=== PATIENT | female | born 1975 | race Caucasian/White ===

== ENCOUNTER 2018-07-04 20:48 | Inpatient (IN) | payer OTHER ==
[2018-07-04] MEDS ORDERED: SODIUM CHLORIDE 0.9% 1,000 ML IV STA ×2 (21:00)
[2018-07-04] MEDS ORDERED: ONDANSETRON 4 MG/2 ML VIAL IVP STA (21:00)
[2018-07-04] MEDS ORDERED: PANTOPRAZOLE 40 MG/10 ML VIAL IVP STA (21:00)
[2018-07-04] MEDS ORDERED: OCTREOTIDE 100 MCG/ML INJ IVP STA (21:01)
--- NOTE | 2018-07-04 21:04 | ED ---
GI Bleed HPI - General Chief complaint: GI Bleed Stated complaint: GI BLEED Time Seen by Provider: 07/04/18 21:00 Source: patient, RN notes reviewed, old records reviewed Mode of arrival: EMS Limitations: no limitations - History of Present Illness Initial comments: This is a 43-year-old female to the ER for evaluation today. States she is coming for evaluation regards to nausea and vomiting, vomiting of blood. Patient has remote history of alcoholism he states he [id number] 5 years ago. Nausea vomiting is continued currently. She denies any pain no abdominal pain just feel lightheaded dizzy and weak. Denies any prior history of GI bleed. Patient is on no blood thinners MD complaint: blood streaked emesis, gross hematemesis -: hour(s) Radiation: none (No pain) Severity scale (1-10): 7 Quality: painless Consistency: constant, now resolved Improves with: none Worsens with: vomiting Context: alcohol abuse (5 years ago) Associated Symptoms: nausea, vomiting Treatments Prior to Arrival: none - Related Data Home Medications Medication Instructions Recorded Confirmed Ergocalciferol [Vitamin D2] 50,000 unit PO Q7D 07/04/18 07/04/18 Ferrous Gluconate 324 mg PO HS 07/04/18 07/04/18 Ibuprofen [Motrin] 800 mg PO AC-TID PRN 07/04/18 07/04/18 Levothyroxine Sodium [Synthroid] 100 mcg PO HS 07/04/18 07/04/18 Loratadine [Claritin] 10 mg PO HS 07/04/18 07/04/18 Thyroid, Pork [[place] Thyroid] 30 mg PO HS 07/04/18 07/04/18 Allergies Allergy/AdvReac Type Severity Reaction Status Date / Time No Known Allergies Allergy Verified 07/04/18 20:58 Review of Systems ROS Statement: Those systems with pertinent positive or pertinent negative responses have been documented in the HPI. ROS Other: All systems not noted in ROS Statement are negative. Past Medical History Past Medical History: Thyroid Disorder History of Any Multi-Drug Resistant Organisms: None Reported Past Surgical History: No Surgical Hx Reported Past Psychological History: No Psychological Hx Reported Smoking Status: Never smoker Past Alcohol Use History: None Reported Past Drug Use History: None Reported General Exam - General Exam Comments Initial Comments: pallor Limitations: no limitations General appearance: alert, in no apparent distress Head exam: Present: atraumatic, normocephalic, normal inspection Eye exam: Present: normal appearance, PERRL, EOMI. Absent: scleral icterus, conjunctival injection, periorbital swelling ENT exam: Present: normal exam, mucous membranes moist Neck exam: Present: normal inspection. Absent: tenderness, meningismus, lymphadenopathy Respiratory exam: Present: normal lung sounds bilaterally. Absent: respiratory distress, wheezes, rales, rhonchi, stridor Cardiovascular Exam: Present: normal rhythm, tachycardia, normal heart sounds. Absent: systolic murmur, diastolic murmur, rubs, gallop, clicks GI/Abdominal exam: Present: soft, normal bowel sounds. Absent: distended, tenderness, guarding, rebound, rigid Extremities exam: Present: normal inspection, full ROM, normal capillary refill. Absent: tenderness, pedal edema, joint swelling, calf tenderness Back exam: Present: normal inspection Neurological exam: Present: alert, oriented X3, CN II-XII intact Psychiatric exam: Present: normal affect, normal mood Skin exam: Present: warm, dry, intact, normal color. Absent: rash Course Vital Signs 07/04/18 07/04/18 20:51 20:56 Temperature 98.4 F Pulse Rate 117 H Respiratory 24 Rate Blood Pressure 109/95 O2 Sat by Pulse 100 Oximetry - Reevaluation(s) Reevaluation #1: 07/04/18 22:18 Medical record is reviewed noncontributory Reevaluation #2: 07/04/18 22:19 Patient's nausea vomiting, vomiting of blood and stopped here in the emergency room Reevaluation #3: 07/04/18 22:19 Patient will be transfused secondary to hemoglobin less than 10 with active GI bleed, Medical Decision Making - Medical Decision Making 43 female the ER with active upper GI bleed, remote history of alcoholism, patient will be admitted to ICU for hemodynamic care transfusion. - Lab Data Result diagrams: 07/04/18 20:52 07/04/18 20:52 Lab Results 07/04/18 07/04/18 07/04/18 Range/Units 20:52 20:52 20:52 WBC 18.0 H (3.8-10.6) k/uL RBC 3.41 L (3.80-5.40) m/uL Hgb 9.8 L (11.4-16.0) gm/dL Hct 29.8 L (34.0-46.0) % MCV 87.4 (80.0-100.0) fL MCH 28.6 (25.0-35.0) pg MCHC 32.7 (31.0-37.0) g/dL RDW 13.1 (11.5-15.5) % Plt Count 395 (150-450) k/uL Neutrophils % 77 % Lymphocytes % 17 % Monocytes % 4 % Eosinophils % 0 % Basophils % 0 % Neutrophils # 14.0 H (1.3-7.7) k/uL Lymphocytes # 3.0 (1.0-4.8) k/uL Monocytes # 0.8 (0-1.0) k/uL Eosinophils # 0.0 (0-0.7) k/uL Basophils # 0.0 (0-0.2) k/uL PT (9.0-12.0) sec INR (<1.2) APTT (22.0-30.0) sec Sodium 136 L (137-145) mmol/L Potassium 4.7 (3.5-5.1) mmol/L Chloride 104 (98-107) mmol/L Carbon Dioxide 22 (22-30) mmol/L Anion Gap 10 mmol/L BUN 48 H (7-17) mg/dL Creatinine 0.68 (0.52-1.04) mg/dL Est GFR (CKD-EPI)AfAm >90 (>60 ml/min/1.73 sqM) Est GFR (CKD-EPI)NonAf >90 (>60 ml/min/1.73 sqM) Glucose 170 H (74-99) mg/dL Plasma Lactic Acid Carl (0.7-2.0) mmol/L Calcium 9.2 (8.4-10.2) mg/dL Magnesium 1.7 (1.6-2.3) mg/dL Total Bilirubin 0.3 (0.2-1.3) mg/dL AST 24 (14-36) U/L ALT 28 (9-52) U/L Alkaline Phosphatase 50 (38-126) U/L Total Creatine Kinase 42 (30-135) U/L CK-MB (CK-2) 1.0 (0.0-2.4) ng/mL CK-MB (CK-2) Rel Index 2.4 Troponin I 0.044 H* (0.000-0.034) ng/mL Total Protein 6.1 L (6.3-8.2) g/dL Albumin 3.6 (3.5-5.0) g/dL Lipase 64 (23-300) U/L Blood Type Blood Type Recheck Antibody Screen Spec Expiration Date 07/04/18 07/04/18 07/04/18 Range/Units 20:52 20:52 20:52 WBC (3.8-10.6) k/uL RBC (3.80-5.40) m/uL Hgb (11.4-16.0) gm/dL Hct (34.0-46.0) % MCV (80.0-100.0) fL MCH (25.0-35.0) pg MCHC (31.0-37.0) g/dL RDW (11.5-15.5) % Plt Count (150-450) k/uL Neutrophils % % Lymphocytes % % Monocytes % % Eosinophils % % Basophils % % Neutrophils # (1.3-7.7) k/uL Lymphocytes # (1.0-4.8) k/uL Monocytes # (0-1.0) k/uL Eosinophils # (0-0.7) k/uL Basophils # (0-0.2) k/uL PT 10.4 (9.0-12.0) sec INR 1.0 (<1.2) APTT 18.8 L (22.0-30.0) sec Sodium (137-145) mmol/L Potassium (3.5-5.1) mmol/L Chloride (98-107) mmol/L Carbon Dioxide (22-30) mmol/L Anion Gap mmol/L BUN (7-17) mg/dL Creatinine (0.52-1.04) mg/dL Est GFR (CKD-EPI)AfAm (>60 ml/min/1.73 sqM) Est GFR (CKD-EPI)NonAf (>60 ml/min/1.73 sqM) Glucose (74-99) mg/dL Plasma Lactic Acid Carl 4.3 H* (0.7-2.0) mmol/L Calcium (8.4-10.2) mg/dL Magnesium (1.6-2.3) mg/dL Total Bilirubin (0.2-1.3) mg/dL AST (14-36) U/L ALT (9-52) U/L Alkaline Phosphatase (38-126) U/L Total Creatine Kinase (30-135) U/L CK-MB (CK-2) (0.0-2.4) ng/mL CK-MB (CK-2) Rel Index Troponin I (0.000-0.034) ng/mL Total Protein (6.3-8.2) g/dL Albumin (3.5-5.0) g/dL Lipase (23-300) U/L Blood Type A Positive Blood Type Recheck No Antibody Screen NEGATIVE Spec Expiration Date 07/07/2018 - 0647 - EKG Data -: EKG Interpreted by Me (EKG shows sinus tachycardia rate of 105, NH 126, QRS 96, QTc 444) Critical Care Time Critical Care Time: Yes Total Critical Care Time: 31 Disposition Clinical Impression: Gastrointestinal hemorrhage, Upper gastrointestinal hemorrhage Disposition: ADMITTED IP TO THIS [facility] Condition: Serious Is patient prescribed a controlled substance at d/c from ED?: No Referrals: Prabha William DO [Primary Care Provider] - 1-2 days
[2018-07-04 21:20] LABS: Basophils % (A) 0 %; Eosinophils % (A) 0 %; HCT 29.8 % (34.0-46.0); HGB 9.8 gm/dL (11.4-16.0); Lymphocytes % (A) 17 %; MCH 28.6 pg (25.0-35.0); MCHC 32.7 g/dL (31.0-37.0); MCV 87.4 fL (80.0-100.0); Monocytes # (A) 0.8 k/uL (0-1.0); Monocytes % (A) 4 %; Neutrophils % (A) 77 %; Platelet Count 395 k/uL (150-450); RBC 3.41 m/uL (3.80-5.40); RDW 13.1 % (11.5-15.5)
[2018-07-04 21:37] LABS: ALT 28 U/L (9-52); AST 24 U/L (14-36); Albumin 3.6 g/dL (3.5-5.0); Alkaline Phosphatase 50 U/L (38-126); Anion Gap 10 mmol/L; Blood Urea Nitrogen 48 mg/dL (7-17); Calcium 9.2 mg/dL (8.4-10.2); Carbon Dioxide 22 mmol/L (22-30); Chloride 104 mmol/L (98-107); Glucose 170 mg/dL (74-99); Lipase 64 U/L (23-300); Magnesium 1.7 mg/dL (1.6-2.3); Potassium 4.7 mmol/L (3.5-5.1); Sodium 136 mmol/L (137-145); Total Bilirubin 0.3 mg/dL (0.2-1.3); Total Protein 6.1 g/dL (6.3-8.2)
[2018-07-04 21:45] LABS: Prothrombin Time 10.4 sec (9.0-12.0)
[2018-07-04 21:48] LABS: Partial Thromboplastin Time 18.8 sec (22.0-30.0)
[2018-07-04 22:04] LABS: Troponin I 0.044 ng/mL (0.000-0.034)
[2018-07-04] MEDS ORDERED: NALOXONE 0.4 MG/ML 1 ML VIAL IV PRN (22:13)
[2018-07-04 23:37] LABS: Glucose,Whole Blood 108 mg/dL (75-99)
[2018-07-04 23:44] VITALS: BMI 27.8
[2018-07-05 03:02] LABS: Basophils # (A) 0.1 k/uL (0-0.2); Basophils % (A) 0 %; Eosinophils # (A) 0.1 k/uL (0-0.7); Eosinophils % (A) 1 %; HCT 29.6 % (34.0-46.0); HGB 9.9 gm/dL (11.4-16.0); Lymphocytes # (A) 4.1 k/uL (1.0-4.8); Lymphocytes % (A) 24 %; MCH 28.8 pg (25.0-35.0); MCHC 33.4 g/dL (31.0-37.0); MCV 86.2 fL (80.0-100.0); Mean Platelet Volume 7.4; Monocytes # (A) 0.9 k/uL (0-1.0); Monocytes % (A) 5 %; Neutrophils # (A) 11.9 k/uL (1.3-7.7); Neutrophils % (A) 69 %; Platelet Count 305 k/uL (150-450); RBC 3.43 m/uL (3.80-5.40); RDW 13.2 % (11.5-15.5); WBC 17.3 k/uL (3.8-10.6)
[2018-07-05 03:12] LABS: ALT 32 U/L (9-52); AST 21 U/L (14-36); Albumin 3.3 g/dL (3.5-5.0); Alkaline Phosphatase 48 U/L (38-126); Anion Gap 5 mmol/L; Blood Urea Nitrogen 36 mg/dL (7-17); Calcium 8.4 mg/dL (8.4-10.2); Carbon Dioxide 24 mmol/L (22-30); Chloride 107 mmol/L (98-107); Glucose 100 mg/dL (74-99); Lipase 35 U/L (23-300); Magnesium 1.7 mg/dL (1.6-2.3); Phosphorus 3.5 mg/dL (2.5-4.5); Potassium 4.3 mmol/L (3.5-5.1); Sodium 136 mmol/L (137-145); Total Bilirubin 0.5 mg/dL (0.2-1.3); Total Protein 5.6 g/dL (6.3-8.2)
[2018-07-05] MEDS ORDERED: Magnesium Replacement Protocol 1 EACH MISC MISCELLANE PRN (03:17)
[2018-07-05] MEDS: MAGNESIUM SULFATE-D5W PMX 1 GM in DEXTROSE/WATER 1 100ML.BAG IVPB SCH ×2 (04:50→06:02)
[2018-07-05 06:37] LABS: HCT 30.4 % (34.0-46.0); HGB 10.5 gm/dL (11.4-16.0); MCH 30.4 pg (25.0-35.0); MCHC 34.4 g/dL (31.0-37.0); MCV 88.2 fL (80.0-100.0); Mean Platelet Volume 7.7; Platelet Count 249 k/uL (150-450); RBC 3.44 m/uL (3.80-5.40); RDW 14.1 % (11.5-15.5); WBC 14.9 k/uL (3.8-10.6)
[2018-07-05] MEDS: PANTOPRAZOLE 40 MG/10 ML VIAL IV SCH ×2 (08:47→21:41)
[2018-07-05 09:34] LABS: Appearance,Urine Clear (Clear); Bilirubin,Urine Negative (Negative); Blood,Urine Negative (Negative); Color,Urine Yellow; Glucose,Urine (UA) Negative (Negative); Ketones,Urine Negative (Negative); Leukocyte Esterase,Urine Negative (Negative); Nitrite,Urine Negative (Negative); Protein,Urine Negative (Negative); Specific Gravity,Urine 1.022 (1.001-1.035); Urobilinogen,Urine <2.0 mg/dL (<2.0)
--- NOTE | 2018-07-05 09:51 | P.CONS ---
History of Present Illness - Reason for Consult Consult date: 07/05/18 GI Bleed Requesting physician: Rc Velez - Chief Complaint Bloody vomit - History of Present Illness The patient is a 43-year-old female with medical history significant for hypothyroidism who presents to the hospital with complaints of hematemesis. The patient reports multiple episodes of hematemesis which started yesterday. She reports waking up in the morning and feeling nauseated and subsequently vomiting more times than she could count which was productive of bright red blood and clots. The patient denies any prior history of upper GI bleeds or varices. No history of peptic ulcer disease. The patient has had endoscopic evaluation with both EGD and colonoscopy approximately 30 years ago in evaluation of stomach pain which she reports was normal, no further endoscopic evaluation. The patient reports that the vomiting occurred more times than she could count and after improving was triggered a second and third time when she tried to drink water. She denies any abdominal pain in association with the vomiting. She denies any fevers, chills, but does report shortness of breath with ambulation in association with the vomiting. No bowel movements yesterday or today. Her last bowel movement 2 days ago was normal in color and consistency. The patient does report frequent upset stomach which she associates with the use of energy drinks describes as a burning in the epigastric region of her abdomen. She treats her abdominal discomfort with Rolaids which she takes approximately 2 times per day. She also uses Motrin 800 mg 1-2 times a day and says that she has been doing this for years. She has a remote history of alcohol use between the ages of 17 and 29/retraction approximate 2 times per week. However the patient reports she is not drinking any alcohol in the past 10 years. She does not use any PPIs or H2 blockers at home. The patient is on iron supplementation at home and believes that reason she is taking iron is because of low levels on blood work in the past. The patient's hemoglobin was 9.8 on presentation and she was subsequently transfused 2 units of packed red blood cells with her hemoglobin found to be 10.5 this morning. Review of Systems REVIEW OF SYSTEMS: CONSTITUTIONAL: Denies any fevers, chills, weight change or fatigue. CARDIOVASCULAR: Denies any chest pain, palpitations high or low blood pressures RESPIRATORY: Denies any hemoptysis or cough but does report shortness of breath with exertion. GENITOURINARY: No dysuria or hematuria. MUSCULOSKELETAL: No weakness reported. SKIN: Denies any new rashes or lesions, jaundice or pallor. PSYCHIATRIC: Denies any depression or anxiety. NEUROLOGY: Denies headache, denies any new focal deficits. EARS/NOSE/THROAT: No recent hearing change, congestion, nasal discharge or sore throat. EYES: No pain in eyes, discharge or change in vision. GASTROINTESTINAL: As per HPI. Past Medical History Past Medical History: Thyroid Disorder History of Any Multi-Drug Resistant Organisms: None Reported Past Surgical History: Ablation Additional Past Surgical History / Comment(s): Uterus ablation Past Psychological History: No Psychological Hx Reported Smoking Status: Current every day smoker Past Alcohol Use History: None Reported Additional Past Alcohol Use History / Comment(s): History of alcohol abuse. Quit 5 years ago Past Drug Use History: None Reported Additional Drug Use History / Comment(s): Smokes about 1/2 a pack per day - Past Family History Father History Unknown: Yes Family Medical History: Hypertension Mother Family Medical History: Hypertension Medications and Allergies Home Medications Medication Instructions Recorded Confirmed Type Ergocalciferol [Vitamin D2] 50,000 unit PO Q7D 07/04/18 07/04/18 History Ferrous Gluconate 324 mg PO HS 07/04/18 07/04/18 History Ibuprofen [Motrin] 800 mg PO AC-TID PRN 07/04/18 07/04/18 History Levothyroxine Sodium [Synthroid] 100 mcg PO HS 07/04/18 07/04/18 History Loratadine [Claritin] 10 mg PO HS 07/04/18 07/04/18 History Thyroid, Pork [[place] Thyroid] 30 mg PO HS 07/04/18 07/04/18 History Allergies Allergy/AdvReac Type Severity Reaction Status Date / Time No Known Allergies Allergy Verified 07/04/18 20:58 Physical Exam Vitals: Vital Signs Temp Pulse Resp BP Pulse Ox 07/05/18 08:00 98.1 F 68 13 102/70 99 07/05/18 07:53 99 07/05/18 07:00 71 13 114/81 99 07/05/18 06:00 75 14 120/83 99 07/05/18 05:00 71 12 126/94 100 07/05/18 04:48 98.3 F 72 15 126/94 07/05/18 04:00 85 18 117/92 99 07/05/18 03:48 98.2 F 89 16 117/92 07/05/18 03:18 98.0 F 84 15 124/97 07/05/18 03:08 98.4 F 80 14 117/84 07/05/18 03:00 84 16 120/83 99 07/05/18 02:12 98.5 F 89 15 126/74 07/05/18 02:00 86 13 132/87 99 07/05/18 01:08 98.7 F 85 15 119/78 07/05/18 01:00 88 15 118/88 99 07/05/18 00:38 99.4 F 96 12 118/88 07/05/18 00:28 99.0 F 101 H 11 L 125/87 07/05/18 00:00 102 H 12 123/99 98 07/04/18 23:32 98.0 F 102 H 17 123/99 100 07/04/18 20:56 98.4 F 07/04/18 20:51 117 H 24 109/95 100 Intake and Output 07/04/18 07/05/18 07/05/18 22:59 06:59 14:59 Intake Total 1940 100 Output Total 0 0 Balance 1940 100 Intake: IV 700 100 Magnesium Sulfate-D5w Pmx 200 1 gm In Dextrose/Water 1 100ml.bag @ 100 mls/hr IVPB Q1H [facility]IOR Rx#: [id number] Sodium Chloride 0.9% 1, 500 100 000 ml @ 100 mls/hr IV . Q10H STA Rx#:[id number] Blood Product 1240 Rc As-1 Unit 310 [id number] Rc Pheresis 2 As3 Unit 310 [id number] Output: Urine 0 0 Other: Voiding Method Toilet # Voids 1 Weight 73.4 kg 74 kg On physical examination, patient appears comfortable in no apparent distress. HEAD: Normocephalic, atraumatic. EYES: No scleral icterus. No conjunctival injection. MOUTH: No lesions, tongue midline. NECK: Trachea midline, no gross abnormalities. CHEST: Clear to auscultation with no wheezing or rhonchi appreciated. HEART: Regular rate and rhythm. ABDOMEN: Soft, obese. Bowel sounds are positive. No organomegaly. No guarding or rigidity. EXTREMITIES: No pedal edema. SKIN: No rashes, no jaundice. NEUROLOGIC: Alert and oriented x3. No focal deficits. Results CBC & Chem 7: 07/05/18 06:12 07/05/18 02:48 Labs: Abnormal Lab Results - Last 24 Hours (Table) 07/04/18 07/04/18 07/04/18 Range/Units 20:52 20:52 20:52 WBC 18.0 H (3.8-10.6) k/uL RBC 3.41 L (3.80-5.40) m/uL Hgb 9.8 L (11.4-16.0) gm/dL Hct 29.8 L (34.0-46.0) % Neutrophils # 14.0 H (1.3-7.7) k/uL APTT (22.0-30.0) sec Sodium 136 L (137-145) mmol/L BUN 48 H (7-17) mg/dL Glucose 170 H (74-99) mg/dL POC Glucose (mg/dL) (75-99) mg/dL Plasma Lactic Acid Carl (0.7-2.0) mmol/L Troponin I 0.044 H* (0.000-0.034) ng/mL Total Protein 6.1 L (6.3-8.2) g/dL Albumin (3.5-5.0) g/dL Crossmatch 07/04/18 07/04/18 07/04/18 Range/Units 20:52 20:52 20:52 WBC (3.8-10.6) k/uL RBC (3.80-5.40) m/uL Hgb (11.4-16.0) gm/dL Hct (34.0-46.0) % Neutrophils # (1.3-7.7) k/uL APTT 18.8 L (22.0-30.0) sec Sodium (137-145) mmol/L BUN (7-17) mg/dL Glucose (74-99) mg/dL POC Glucose (mg/dL) (75-99) mg/dL Plasma Lactic Acid Carl 4.3 H* (0.7-2.0) mmol/L Troponin I (0.000-0.034) ng/mL Total Protein (6.3-8.2) g/dL Albumin (3.5-5.0) g/dL Crossmatch See Detail 07/04/18 07/05/18 07/05/18 Range/Units 23:25 02:48 02:48 WBC 17.3 H (3.8-10.6) k/uL RBC 3.43 L (3.80-5.40) m/uL Hgb 9.9 L (11.4-16.0) gm/dL Hct 29.6 L (34.0-46.0) % Neutrophils # 11.9 H (1.3-7.7) k/uL APTT (22.0-30.0) sec Sodium 136 L (137-145) mmol/L BUN 36 H (7-17) mg/dL Glucose 100 H (74-99) mg/dL POC Glucose (mg/dL) 108 H (75-99) mg/dL Plasma Lactic Acid Carl (0.7-2.0) mmol/L Troponin I (0.000-0.034) ng/mL Total Protein 5.6 L (6.3-8.2) g/dL Albumin 3.3 L (3.5-5.0) g/dL Crossmatch 07/05/18 Range/Units 06:12 WBC 14.9 H (3.8-10.6) k/uL RBC 3.44 L (3.80-5.40) m/uL Hgb 10.5 L (11.4-16.0) gm/dL Hct 30.4 L (34.0-46.0) % Neutrophils # (1.3-7.7) k/uL APTT (22.0-30.0) sec Sodium (137-145) mmol/L BUN (7-17) mg/dL Glucose (74-99) mg/dL POC Glucose (mg/dL) (75-99) mg/dL Plasma Lactic Acid Carl (0.7-2.0) mmol/L Troponin I (0.000-0.034) ng/mL Total Protein (6.3-8.2) g/dL Albumin (3.5-5.0) g/dL Crossmatch Assessment and Plan (1) Upper gastrointestinal hemorrhage Narrative/Plan: Patient presenting with complaints of multiple episodes of hematemesis of unknown etiology, may represent peptic ulcer disease in the setting of Motrin use with differential also including [place] lesion, AVM, erosive esophagitis or gastritis or other etiology. Current Visit: Yes Status: Acute Code(s): K92.2 - GASTROINTESTINAL HEMORRHAGE, UNSPECIFIED SNOMED Code(s): 49163629 (2) Anemia due to blood loss Narrative/Plan: Patient presenting to the hospital with hemoglobin found to be 9.8 after multiple episodes of hematemesis. The patient also reported shortness of breath on exertion on presentation likely representing symptomatic anemia. Current Visit: Yes Status: Acute Code(s): D50.0 - IRON DEFICIENCY ANEMIA SECONDARY TO BLOOD LOSS (CHRONIC) SNOMED Code(s): 348035164 Plan: Supportive care Nothing by mouth Monitor hemoglobin and transfuse as needed Continue Protonix therapy Avoid NSAID use Plan for EGD today Further recommendations pending findings of endoscopy Thank you for allowing us to participate in the care of this patient we will continue to follow
--- NOTE | 2018-07-05 10:33 | P.HPIM ---
History of Present Illness H&P Date: 07/05/18 Chief Complaint: GI bleed This is a 43-year-old female patient of Dr. William. Patient presented with complaints of bloody emesis. She states she will up in the morning and started having emesis that she did not notice red with blood. Throughout the day patient to need to have dark red emesis patient was recommended from coworker to report to ER for further evaluation. Patient does report that she was a heavy drinker but stopped approximately 10 years prior. Patient denies any blood thinners at this time. Patient denies any previous episodes of GI bleed. Patient denies any light stool. Patient denies any abdominal pain with emesis occurrence. Patient does have a medical history of thyroid disorder patient does report that she takes Synthroid along with thyroid Pork. GI services have been consulted. Patient received 2 units of PRBCs in emergency room. Hemoglobin currently stable at 10.5. Per GI services planning EGD. White count also mildly 14.9. Patient denies cough. Patient denies any upper respiratory symptoms. UA negative. Patient denies any significant abdominal pain. Review of Systems Please refer to HPI otherwise unremarkable Past Medical History Past Medical History: Thyroid Disorder History of Any Multi-Drug Resistant Organisms: None Reported Past Surgical History: Ablation Additional Past Surgical History / Comment(s): Uterus ablation Past Psychological History: No Psychological Hx Reported Smoking Status: Current every day smoker Past Alcohol Use History: None Reported Additional Past Alcohol Use History / Comment(s): History of alcohol abuse. Quit 5 years ago Past Drug Use History: None Reported Additional Drug Use History / Comment(s): Smokes about 1/2 a pack per day - Past Family History Father History Unknown: Yes Family Medical History: Hypertension Mother Family Medical History: Hypertension Medications and Allergies Home Medications Medication Instructions Recorded Confirmed Type Ergocalciferol [Vitamin D2] 50,000 unit PO Q7D 07/04/18 07/04/18 History Ferrous Gluconate 324 mg PO HS 07/04/18 07/04/18 History Ibuprofen [Motrin] 800 mg PO AC-TID PRN 07/04/18 07/04/18 History Levothyroxine Sodium [Synthroid] 100 mcg PO HS 07/04/18 07/04/18 History Loratadine [Claritin] 10 mg PO HS 07/04/18 07/04/18 History Thyroid, Pork [[place] Thyroid] 30 mg PO HS 07/04/18 07/04/18 History Allergies Allergy/AdvReac Type Severity Reaction Status Date / Time No Known Allergies Allergy Verified 07/04/18 20:58 Physical Exam Vitals: Vital Signs Temp Pulse Resp BP Pulse Ox 07/05/18 08:00 98.1 F 68 13 102/70 99 07/05/18 07:53 99 07/05/18 07:00 71 13 114/81 99 07/05/18 06:00 75 14 120/83 99 07/05/18 05:00 71 12 126/94 100 07/05/18 04:48 98.3 F 72 15 126/94 07/05/18 04:00 85 18 117/92 99 07/05/18 03:48 98.2 F 89 16 117/92 07/05/18 03:18 98.0 F 84 15 124/97 07/05/18 03:08 98.4 F 80 14 117/84 07/05/18 03:00 84 16 120/83 99 07/05/18 02:12 98.5 F 89 15 126/74 07/05/18 02:00 86 13 132/87 99 07/05/18 01:08 98.7 F 85 15 119/78 07/05/18 01:00 88 15 118/88 99 07/05/18 00:38 99.4 F 96 12 118/88 07/05/18 00:28 99.0 F 101 H 11 L 125/87 07/05/18 00:00 102 H 12 123/99 98 07/04/18 23:32 98.0 F 102 H 17 123/99 100 07/04/18 20:56 98.4 F 07/04/18 20:51 117 H 24 109/95 100 Intake and Output 07/04/18 07/05/18 07/05/18 22:59 06:59 14:59 Intake Total 1940 300 Output Total 0 800 Balance 1940 -500 Intake: IV 700 300 Magnesium Sulfate-D5w Pmx 200 200 1 gm In Dextrose/Water 1 100ml.bag @ 100 mls/hr IVPB Q1H [facility] Rx#: [id number] Sodium Chloride 0.9% 1, 500 100 000 ml @ 100 mls/hr IV . Q10H STA Rx#:[id number] Blood Product 1240 Rc As-1 Unit 310 [id number] Rc Pheresis 2 As3 Unit 310 [id number] Output: Urine 0 800 Other: Voiding Method Toilet # Voids 1 Weight 73.4 kg 74 kg Head normocephalic Neck supple Lungs clear to auscultation bilaterally no wheezing or crackles Heart regular rate and rhythm S1-S2, no rub or gallop Abdomen is soft nontender nondistended positive bowel sounds no hepatosplenomegaly Extremities no edema Neuro alert and orientated to 3 Results CBC & Chem 7: 07/05/18 06:12 07/05/18 02:48 Labs: Abnormal Lab Results - Last 24 Hours (Table) 07/04/18 07/04/18 07/04/18 Range/Units 20:52 20:52 20:52 WBC 18.0 H (3.8-10.6) k/uL RBC 3.41 L (3.80-5.40) m/uL Hgb 9.8 L (11.4-16.0) gm/dL Hct 29.8 L (34.0-46.0) % Neutrophils # 14.0 H (1.3-7.7) k/uL APTT (22.0-30.0) sec Sodium 136 L (137-145) mmol/L BUN 48 H (7-17) mg/dL Glucose 170 H (74-99) mg/dL POC Glucose (mg/dL) (75-99) mg/dL Plasma Lactic Acid Carl (0.7-2.0) mmol/L Troponin I 0.044 H* (0.000-0.034) ng/mL Total Protein 6.1 L (6.3-8.2) g/dL Albumin (3.5-5.0) g/dL Crossmatch 07/04/18 07/04/18 07/04/18 Range/Units 20:52 20:52 20:52 WBC (3.8-10.6) k/uL RBC (3.80-5.40) m/uL Hgb (11.4-16.0) gm/dL Hct (34.0-46.0) % Neutrophils # (1.3-7.7) k/uL APTT 18.8 L (22.0-30.0) sec Sodium (137-145) mmol/L BUN (7-17) mg/dL Glucose (74-99) mg/dL POC Glucose (mg/dL) (75-99) mg/dL Plasma Lactic Acid Carl 4.3 H* (0.7-2.0) mmol/L Troponin I (0.000-0.034) ng/mL Total Protein (6.3-8.2) g/dL Albumin (3.5-5.0) g/dL Crossmatch See Detail 07/04/18 07/05/18 07/05/18 Range/Units 23:25 02:48 02:48 WBC 17.3 H (3.8-10.6) k/uL RBC 3.43 L (3.80-5.40) m/uL Hgb 9.9 L (11.4-16.0) gm/dL Hct 29.6 L (34.0-46.0) % Neutrophils # 11.9 H (1.3-7.7) k/uL APTT (22.0-30.0) sec Sodium 136 L (137-145) mmol/L BUN 36 H (7-17) mg/dL Glucose 100 H (74-99) mg/dL POC Glucose (mg/dL) 108 H (75-99) mg/dL Plasma Lactic Acid Carl (0.7-2.0) mmol/L Troponin I (0.000-0.034) ng/mL Total Protein 5.6 L (6.3-8.2) g/dL Albumin 3.3 L (3.5-5.0) g/dL Crossmatch 07/05/18 Range/Units 06:12 WBC 14.9 H (3.8-10.6) k/uL RBC 3.44 L (3.80-5.40) m/uL Hgb 10.5 L (11.4-16.0) gm/dL Hct 30.4 L (34.0-46.0) % Neutrophils # (1.3-7.7) k/uL APTT (22.0-30.0) sec Sodium (137-145) mmol/L BUN (7-17) mg/dL Glucose (74-99) mg/dL POC Glucose (mg/dL) (75-99) mg/dL Plasma Lactic Acid Carl (0.7-2.0) mmol/L Troponin I (0.000-0.034) ng/mL Total Protein (6.3-8.2) g/dL Albumin (3.5-5.0) g/dL Crossmatch Thrombosis Risk Factor Assmnt - Choose All That Apply Each Factor Represents 1 point: Sepsis (< 1month) Other Risk Factors: No Thrombosis Risk Factor Assessment Total Risk Factor Score: 1 Thrombosis Risk Factor Assessment Level: Low Risk Assessment and Plan Assessment: 1. Upper GI bleed with anemia due to blood loss. Per GI service is planning for EGD today. Patient received 2 units of PRBCs. hemoglobin 10.5 continue to monitor closely 2. History of EtOH abuse. Patient states she stopped drinking 10 years prior but was a heavy drinker prior 3. Hypothyroidism. Patient does report that she takes both [place] Thyroid and Synthroid per her PCP. Will order TSH level at this time. 4. Nicotine dependence. Patient educated greater than 3 minutes on smoking cessation. Nicotine patch will be ordered DVT prophylaxis SCDs. GI prophylaxis Protonix Time with Patient: Greater than 30 (Greater than 60% of the total time spent in counseling and coordination of care. I performed an examination of the patient and discussed their management with the Nurse Practitioner. I have reviewed the Nurse Practitioner's notes and agree with the documented findings and plan of care)
[2018-07-05 11:07] LABS: T4, Free (Free Thyroxine) 1.11 ng/dL (0.78-2.19)
[2018-07-05] MEDS ORDERED: IV FLUID CONTINUATION 950 ML IV ONE (12:04)
--- NOTE | 2018-07-05 12:34 | P.PCN ---
Date of Procedure: 07/05/18 Description of Procedure: BRIEF HISTORY: Patient is a 43-year-old, pleasant, female with medical history significant for hypothyroidism who presented to the hospital with multiple episodes of hematemesis. The patient was found to have a hemoglobin of 9.8 on presentation and has remained stable. She reports multiple episodes of bloody emesis and passing of clots in her vomit. She denies any associated abdominal pain. The patient had been taking Motrin 800 mg 1-2 times per day for as long as she can remember. She was not on any GI prophylaxis with a PPI or H2 clif and reports taking Rolaids approximately 2 times per day. PROCEDURE PERFORMED: Esophagogastroduodenoscopy with clip placement. PREOPERATIVE DIAGNOSIS: Anemia of acute blood loss, hematemesis. ESTIMATED BLOOD LOSS: Minimal. IV sedation per anesthesia. PROCEDURE: After informed consent was obtained, the patient was brought into the endoscopy unit. IV sedation was administered by Anesthesia under continuous monitoring. Initially the Olympus GIF-160 video endoscope was inserted into the mouth. Esophagus intubated without any difficulty. It was gradually advanced into the stomach and duodenum and carefully examined. The bulb and the second part of the duodenum appeared normal. The scope at this time was withdrawn to the stomach, adequately insufflated with air, and upon careful examination, mucosa of the antrum, body, cardia and the fundus appeared normal. A cratered ulcer was found in the antrum with a clot noted over the ulcer. Copious lavage was attempted to try and wash the clot away however was unsuccessful. No active bleeding was seen. A clip was placed over the ulcer even the finding of a clot, with successful placement. A small hiatal hernia was noted on retroflexion in the stomach. The scope was then withdrawn into the esophagus. The GE junction was located at 37 cm from the incisors. The esophagus appeared normal except for a small distal esophageal ulcer possibly representing a Sarah-Walker tear in the setting of numerous episodes of nausea and vomiting. The patient tolerated the procedure well. IMPRESSION: 1. Cratered antral ulcer with clot noted, and successful placement of a clip over the ulcer. 2. Small hiatal hernia. 3. Distal esophageal ulcer. 4. No active bleeding. RECOMMENDATIONS: The findings of this examination were discussed with the patient. Okay for liquid diet today. If hemoglobin remains stable condition advance tomorrow. Continue IV Protonix 40 mg twice a day today with likely transition to oral Protonix tomorrow if hemoglobin is stable and patient remains asymptomatic. Patient will need follow-up in the next 1-2 weeks and to be scheduled in the next 6-8 weeks for follow-up EGD to ensure ulcer healing. Avoid NSAID medications.
--- NOTE | 2018-07-05 13:26 | P.CNPUL ---
History of Present Illness Consult date: 07/05/18 Reason for consult: other (Upper GI bleeding, admitted to the ICU) Chief complaint: Vomiting blood History of present illness: This is a 53-year-old female with no significant previous medical illnesses, except for hypothyroidism, presented to the hospital with chief complaint of bloody emesis. Patient had multiple episodes which all started yesterday, woke up in the morning, and she felt nauseated, subsequently she vomited bright red blood and blood clots. No previous history of GI bleeding, no previous history of peptic ulcer disease, no history of esophageal varices, and no history of liver disease. Patient has been taking Motrin for [place] of time on a regular basis once or twice a day. Upon presentation to the ER, patient was noted to be quite symptomatic, and she was having actual intermittent episodes of vomiting blood. She received a total of 2 units of packed RBCs, her initial hemoglobin on presentation was 9.8, and it is presently 10.5. Patient was admitted to the ICU, seen already by gastroenterology, and EGD was performed, and she was found to have antral ulcer with clot noted, clips applied over the ulcer. There was also evidence of distal esophageal ulcer small hiatal hernia, and there was no evidence of active bleeding. Patient was placed on IV Protonix 40 mg twice a day, and she'll be transitioned to oral Protonix in the morning. In the meantime I'm seeing the patient in the ICU, and she is asymptomatic, hemodynamically stable. Patient was advised to stop taking any nonsteroidal anti-inflammatory drugs, and we'll continue Protonix. Review of Systems 14 point review of systems were obtained, please refer to pertinent positives in HPI, otherwise remaining systems are negative. Past Medical History Past Medical History: Thyroid Disorder History of Any Multi-Drug Resistant Organisms: None Reported Past Surgical History: Ablation Additional Past Surgical History / Comment(s): Uterus ablation Past Psychological History: No Psychological Hx Reported Smoking Status: Current every day smoker Past Alcohol Use History: None Reported Additional Past Alcohol Use History / Comment(s): History of alcohol abuse. Quit 5 years ago Past Drug Use History: None Reported Additional Drug Use History / Comment(s): Smokes about 1/2 a pack per day - Past Family History Father History Unknown: Yes Family Medical History: Hypertension Mother Family Medical History: Hypertension Medications and Allergies Home Medications Medication Instructions Recorded Confirmed Type Ergocalciferol [Vitamin D2] 50,000 unit PO Q7D 07/04/18 07/04/18 History Ferrous Gluconate 324 mg PO HS 07/04/18 07/04/18 History Ibuprofen [Motrin] 800 mg PO AC-TID PRN 07/04/18 07/04/18 History Levothyroxine Sodium [Synthroid] 100 mcg PO HS 07/04/18 07/04/18 History Loratadine [Claritin] 10 mg PO HS 07/04/18 07/04/18 History Thyroid, Pork [[place] Thyroid] 30 mg PO HS 07/04/18 07/04/18 History Allergies Allergy/AdvReac Type Severity Reaction Status Date / Time No Known Allergies Allergy Verified 07/04/18 20:58 Physical Exam Vitals: Vital Signs Temp Pulse Resp BP Pulse Ox 07/05/18 11:00 75 14 131/68 97 07/05/18 10:00 108 H 15 116/82 97 07/05/18 09:00 93 12 101/74 97 07/05/18 08:00 98.1 F 68 13 102/70 99 07/05/18 07:53 99 07/05/18 07:00 71 13 114/81 99 07/05/18 06:00 75 14 120/83 99 07/05/18 05:00 71 12 126/94 100 07/05/18 04:48 98.3 F 72 15 126/94 07/05/18 04:00 85 18 117/92 99 07/05/18 03:48 98.2 F 89 16 117/92 07/05/18 03:18 98.0 F 84 15 124/97 07/05/18 03:08 98.4 F 80 14 117/84 07/05/18 03:00 84 16 120/83 99 07/05/18 02:12 98.5 F 89 15 126/74 07/05/18 02:00 86 13 132/87 99 07/05/18 01:08 98.7 F 85 15 119/78 07/05/18 01:00 88 15 118/88 99 07/05/18 00:38 99.4 F 96 12 118/88 07/05/18 00:28 99.0 F 101 H 11 L 125/87 07/05/18 00:00 102 H 12 123/99 98 12/09/18 23:32 98.0 F 102 H 17 123/99 100 07/04/18 20:56 98.4 F 07/04/18 20:51 117 H 24 109/95 100 Intake and Output 07/04/18 07/05/18 07/05/18 22:59 06:59 14:59 Intake Total 1940 450 Output Total 0 800 Balance 1940 -350 Intake: IV 700 450 Magnesium Sulfate-D5w Pmx 200 200 1 gm In Dextrose/Water 1 100ml.bag @ 100 mls/hr IVPB Q1H JUNIOR Rx#: [id number] Sodium Chloride 0.9% 1, 500 100 000 ml @ 100 mls/hr IV . Q10H STA Rx#:[id number] Blood Product 1240 Rc As-1 Unit 310 [id number] Rc Pheresis 2 As3 Unit 310 [id number] Output: Urine 0 800 Other: Voiding Method Toilet Toilet # Voids 1 Weight 73.4 kg 74 kg Physical Exam: Revealed a 43-year-old female in no distress. Head: Atraumatic, normocephalic. HEENT: PERRLA, EOMI, no icterus. [Neck is supple.] [No neck masses.] [No thyromegaly.] [No JVD.], Dry mucous membranes. Throat is clear. Chest: [Clear throughout, no crackles, no rhonchi, no wheezes.] Cardiac Exam: [Normal S1 and S2, no S3 gallop, no murmur.] Abdomen: [Soft, nontender, no megaly, no rebound, no guarding, normal bowel sounds.] Extremities: [No clubbing, no edema, no cyanosis.] Neurological Exam: [No focal neurologic deficit.] Psychiatric: Normal mood, affect and mental status examination. Skin: No rashes. Results - Laboratory Findings CBC and BMP: 07/05/18 06:12 07/05/18 02:48 PT/INR, D-dimer PT 10.4 sec (9.0-12.0) 07/04/18 20:52 INR 1.0 (<1.2) 07/04/18 20:52 Abnormal lab findings: Abnormal Labs 07/04/18 07/04/18 07/04/18 20:52 20:52 20:52 WBC 18.0 H RBC 3.41 L Hgb 9.8 L Hct 29.8 L Neutrophils # 14.0 H APTT Sodium 136 L BUN 48 H Glucose 170 H POC Glucose (mg/dL) Plasma Lactic Acid Carl Troponin I 0.044 H* Total Protein 6.1 L Albumin TSH Crossmatch 07/04/18 07/04/18 07/04/18 20:52 20:52 20:52 WBC RBC Hgb Hct Neutrophils # APTT 18.8 L Sodium BUN Glucose POC Glucose (mg/dL) Plasma Lactic Acid Carl 4.3 H* Troponin I Total Protein Albumin TSH Crossmatch See Detail 07/04/18 07/05/18 07/05/18 23:25 02:48 02:48 WBC 17.3 H RBC 3.43 L Hgb 9.9 L Hct 29.6 L Neutrophils # 11.9 H APTT Sodium 136 L BUN 36 H Glucose 100 H POC Glucose (mg/dL) 108 H Plasma Lactic Acid Carl Troponin I Total Protein 5.6 L Albumin 3.3 L TSH Crossmatch 07/05/18 07/05/18 02:48 06:12 WBC 14.9 H RBC 3.44 L Hgb 10.5 L Hct 30.4 L Neutrophils # APTT Sodium BUN Glucose POC Glucose (mg/dL) Plasma Lactic Acid Carl Troponin I Total Protein Albumin TSH <0.015 L Crossmatch Assessment and Plan Assessment: Impression: 1 acute upper GI bleeding secondary to gastric ulcer, status post EGD and clipping. This is most likely triggered by excessive use of nonsteroidal anti- inflammatory drugs/Motrin. 2 acute anemia secondary to GI blood losses. Patient did require 2 units of packed RBCs upon admission. 3 history of hypothyroidism, on replacement therapy. 4 nicotine dependence syndrome. Patient was counseled regarding smoking cessation. Recommendation: Continue treatment plan including Protonix as recommended by GI on consultation. Patient is status post EGD, and findings were noted. We'll continue to monitor the patient in the ICU for the next few hours, and if she remains stable and no evidence of active bleeding, will likely consider transferring the patient out of the ICU to a medical surgical floor. We'll continue to follow. Patient was informed not to take any more nonsteroidal anti -inflammatory drugs for now. Time with Patient: Greater than 30
[2018-07-05] MEDS ORDERED: THYROID, PORK 30 MG TAB PO SCH (21:00)
[2018-07-05] MEDS ORDERED: LEVOTHYROXINE 100 MCG TAB PO SCH (21:00)
[2018-07-06] MEDS ORDERED: GABAPENTIN 300 MG CAP PO SCH (00:45)
[2018-07-06] MEDS ORDERED: CYCLOBENZAPRINE 10 MG TAB PO SCH (00:45)
[2018-07-06 05:36] VITALS: RESP 16
[2018-07-06 05:50] LABS: Basophils % (A) 0 %; Eosinophils # (A) 0.3 k/uL (0-0.7); Eosinophils % (A) 3 %; HGB 9.7 gm/dL (11.4-16.0); Lymphocytes # (A) 3.4 k/uL (1.0-4.8); Lymphocytes % (A) 34 %; MCH 29.4 pg (25.0-35.0); MCHC 33.3 g/dL (31.0-37.0); MCV 88.4 fL (80.0-100.0); Mean Platelet Volume 7.3; Monocytes # (A) 0.5 k/uL (0-1.0); Monocytes % (A) 5 %; Neutrophils # (A) 5.3 k/uL (1.3-7.7); Neutrophils % (A) 54 %; Platelet Count 241 k/uL (150-450); RBC 3.28 m/uL (3.80-5.40); WBC 9.8 k/uL (3.8-10.6)
[2018-07-06 06:03] LABS: Anion Gap 6 mmol/L; Blood Urea Nitrogen 11 mg/dL (7-17); Calcium 8.6 mg/dL (8.4-10.2); Carbon Dioxide 23 mmol/L (22-30); Chloride 109 mmol/L (98-107); Glucose 88 mg/dL (74-99); Magnesium 2.1 mg/dL (1.6-2.3); Phosphorus 2.8 mg/dL (2.5-4.5); Potassium 4.2 mmol/L (3.5-5.1); Sodium 138 mmol/L (137-145)
[2018-07-06] MEDS ORDERED: NICOTINE 14MG/24HR PATCH TRANSDERM SCH (09:00)
[2018-07-06 09:03] VITALS: BP 110/81; PULSE 72
[2018-07-06] MEDS: PANTOPRAZOLE 40 MG/10 ML VIAL IV SCH (09:04)
[2018-07-06 13:58] VITALS: TEMP 98.6
--- NOTE | 2018-07-06 14:21 | P.PN ---
Subjective Progress Note Date: 07/06/18 Principal diagnosis: Acute upper GI bleeding secondary to gastric ulcer This is a 53-year-old female with no significant previous medical illnesses, except for hypothyroidism, presented to the hospital with chief complaint of bloody emesis. Patient had multiple episodes which all started yesterday, woke up in the morning, and she felt nauseated, subsequently she vomited bright red blood and blood clots. No previous history of GI bleeding, no previous history of peptic ulcer disease, no history of esophageal varices, and no history of liver disease. Patient has been taking Motrin for [place] of time on a regular basis once or twice a day. Upon presentation to the ER, patient was noted to be quite symptomatic, and she was having actual intermittent episodes of vomiting blood. She received a total of 2 units of packed RBCs, her initial hemoglobin on presentation was 9.8, and it is presently 10.5. Patient was admitted to the ICU, seen already by gastroenterology, and EGD was performed, and she was found to have antral ulcer with clot noted, clips applied over the ulcer. There was also evidence of distal esophageal ulcer small hiatal hernia, and there was no evidence of active bleeding. Patient was placed on IV Protonix 40 mg twice a day, and she'll be transitioned to oral Protonix in the morning. In the meantime I'm seeing the patient in the ICU, and she is asymptomatic, hemodynamically stable. Patient was advised to stop taking any nonsteroidal anti-inflammatory drugs, and we'll continue Protonix. Patient was reevaluated today on 07/06/2018, doing well, no active bleeding, no hematemesis, hemoglobin is holding at 9.7 today. Clinically the patient is doing great, hence I plan to transfer the patient out of the ICU, will continue Protonix, and could be transitioned to oral consent of IV Protonix. Objective - Vital Signs Vital signs: Vital Signs Temp 98.6 F 07/06/18 13:58 Pulse 72 07/06/18 08:58 Resp 16 07/06/18 08:58 BP 110/81 07/06/18 08:58 Pulse Ox 96 07/06/18 08:58 Intake & Output 07/05/18 07/06/18 07/06/18 18:59 06:59 18:59 Intake Total 650 500 Output Total 800 Balance -150 500 Weight 74.3 kg Intake: IV 650 0 Magnesium Sulfate-D5w Pmx 200 1 gm In Dextrose/Water 1 100ml.bag @ 100 mls/hr IVPB Q1H JUNIOR Rx#: [id number] Sodium Chloride 0.9% 1, 300 0 000 ml @ 100 mls/hr IV . Q10H STA Rx#:[id number] Intake, IV Titration 0 Amount IV Fluid Continuation 950 0 ml @ 0 mls/hr IV .STK- MED ONE Rx#:[id number] Oral 500 Output: Urine 800 Other: Voiding Method Toilet # Voids 1 4 - Exam Physical Exam: Pleasant 43-year-old female in no distress. Head: Atraumatic, normocephalic. HEENT: PERRLA, EOMI, no icterus. [Neck is supple.] [No neck masses.] [No thyromegaly.] [No JVD.], Dry mucous membranes. Throat is clear. Chest: [Clear throughout, no crackles, no rhonchi, no wheezes.] Cardiac Exam: [Normal S1 and S2, no S3 gallop, no murmur.] Abdomen: [Soft, nontender, no megaly, no rebound, no guarding, normal bowel sounds.] Extremities: [No clubbing, no edema, no cyanosis.] Neurological Exam: [No focal neurologic deficit.] Psychiatric: Normal mood, affect and mental status examination. Skin: No rashes. - Labs CBC & Chem 7: 07/06/18 05:27 07/06/18 05:27 Labs: Abnormal Lab Results - Last 24 Hours (Table) 07/06/18 07/06/18 Range/Units 05:27 05:27 RBC 3.28 L (3.80-5.40) m/uL Hgb 9.7 L (11.4-16.0) gm/dL Hct 29.0 L (34.0-46.0) % Chloride 109 H (98-107) mmol/L Assessment and Plan Assessment: Impression: 1 acute upper GI bleeding secondary to gastric ulcer, status post EGD and clipping. This is most likely triggered by excessive use of nonsteroidal anti- inflammatory drugs/Motrin. 2 acute anemia secondary to GI blood losses. Patient did require 2 units of packed RBCs upon admission. 3 history of hypothyroidism, on replacement therapy. 4 nicotine dependence syndrome. Patient was counseled regarding smoking cessation. Recommendation: Continue present meds, patient is stable enough, she could be transferred out of the ICU, and possible discharge planning in the next 24 hours. Time with Patient: Less than 30
--- NOTE | 2018-07-06 15:03 | XR ---
EXAMINATION TYPE: XR chest 1V portable DATE OF EXAM: 07/06/2018 COMPARISON: NONE HISTORY: Upper gastrointestinal bleeding, rule out pneumonia TECHNIQUE: Single frontal view of the chest is obtained. FINDINGS: There is no focal air space opacity, pleural effusion, or pneumothorax seen. The cardiac silhouette size is within normal limits. The osseous structures are intact. IMPRESSION: No acute process.
--- NOTE | 2018-07-06 15:43 | P.DS ---
Providers Date of admission: 07/04/18 22:19 Expected date of discharge: 07/06/18 Attending physician: Rc Velez Consults: 07/04/18 22:13 Consult Physician Routine Consulting Provider: Deep Sin Consult Reason/Comments: gib Do you want consulting provider notified?: Yes Consult Physician Routine Consulting Provider: Fady Morrison Consult Reason/Comments: gib Do you want consulting provider notified?: Yes Primary care physician: Prabha William Hospital Course: Discharge Diagnosis 1. Upper GI bleed with anemia due to blood loss. Per GI service is planning for EGD today. Patient received 2 units of PRBCs. hemoglobin 10.5 continue to monitor closely. EGD completed showing cratered antral ulcer with clot noted, and successful placement of clip over the ulcer. Small hiatal hernia. Distal esophageal ulcer. No active bleeding. GI has cleared patient for discharge recommended continuing Protonix 40 mg twice a day and to follow-up in the next 1 -2 weeks with GI services and possible EGD in 6-8 weeks to ensure also feeling. Patient heavily advised to avoid NSAID use 2. History of EtOH abuse. Patient states she stopped drinking 10 years prior but was a heavy drinker prior 3. Hypothyroidism. Patient does report that she takes both [place] Thyroid and Synthroid per her PCP. TSH level less than 0.015. Informed patient that her TSH level is very low. Will DC thyroid [place]. We'll maintain Synthroid. Advised patient to follow-up closely with PCP for further workup 4. Nicotine dependence. Patient educated greater than 3 minutes on smoking cessation. Nicotine patch will be ordered 5. Low-grade fever. Patient had temperature 99.9. repeat temp 98.6. Patient's initial white blood cell count 18. Patient's white blood cell count now normal at 9.8. Patient has no plans at this time denies any upper respiratory symptoms. UA negative. Patient denies nausea vomiting or diarrhea. Will order chest x-ray. X-ray completed showing no acute process. Hospital Course This is a 43-year-old female patient of Dr. William. Patient presented with complaints of bloody emesis. She states she will up in the morning and started having emesis that she did not notice red with blood. Throughout the day patient to need to have dark red emesis patient was recommended from coworker to report to ER for further evaluation. Patient does report that she was a heavy drinker but stopped approximately 10 years prior. Patient denies any blood thinners at this time. Patient denies any previous episodes of GI bleed. Patient denies any light stool. Patient denies any abdominal pain with emesis occurrence. Patient does have a medical history of thyroid disorder patient does report that she takes Synthroid along with thyroid Pork. GI services have been consulted. Patient received 2 units of PRBCs in emergency room. Hemoglobin currently stable at 10.5. Per GI services planning EGD. White count also mildly 14.9. Patient denies cough. Patient denies any upper respiratory symptoms. UA negative. Patient denies any significant abdominal pain. On 07/06/2018 patient has been cleared for discharge from GI standpoint. Patient has been tolerating diet. hemoglobuin 9.7. Patient to follow-up with GI services in 2-3 weeks and EGD and 60 weeks to ensure ulcer healing. Patient will be DC'd on Protonix twice a day. CBC has been ordered to for 2 days to follow-up with hemoglobin and WBC. Patient did present with elevated being WBC. UA and chest x-ray negative. TSH also low at 0.015 informed patient stop her thyroid more only continue with her Synthroid and to follow-up closely with her PCP for further evaluation and treatment. At this time patient has had no episodes of bleeding. Patient had normal BM last night. Patient denies nausea vomiting or diarrhea. Patient denies any urinary burning or frequency. Patient denies chest pain or shortness. I performed an examination of the patient and discussed their management with the Nurse Practitioner. I have reviewed the Nurse Practitioner's notes and agree with the documented findings and plan of care Patient Condition at Discharge: Stable Plan - Discharge Summary New Discharge Prescriptions: New Nicotine 14Mg/24Hr Patch [Habitrol] 1 patch TRANSDERM DAILY #30 patch Pantoprazole [Protonix] 40 mg PO BID 30 Days #60 tablet.dr Continue Loratadine [Claritin] 10 mg PO HS Ferrous Gluconate 324 mg PO HS Ergocalciferol [Vitamin D2 (DRISDOL)] 50,000 unit PO Q7D Levothyroxine Sodium [Synthroid] 100 mcg PO HS Gabapentin 300 mg HS Cyclobenzaprine [Flexeril] 5 mg HS Levothyroxine Sodium [Synthroid] 88 mcg PO HS Discontinued Thyroid, Pork [[place] Thyroid] 30 mg PO HS Ibuprofen [Motrin] 800 mg PO AC-TID PRN PRN Reason: Pain Discharge Medication List Ergocalciferol [Vitamin D2 (DRISDOL)] 50,000 unit PO Q7D 07/04/18 [History] Ferrous Gluconate 324 mg PO HS 07/04/18 [History] Levothyroxine Sodium [Synthroid] 100 mcg PO HS 07/04/18 [History] Loratadine [Claritin] 10 mg PO HS 07/04/18 [History] Cyclobenzaprine [Flexeril] 5 mg HS 07/05/18 [History] Gabapentin 300 mg HS 07/05/18 [History] Levothyroxine Sodium [Synthroid] 88 mcg PO HS 07/05/18 [History] Nicotine 14Mg/24Hr Patch [Habitrol] 1 patch TRANSDERM DAILY #30 patch 07/06/18 [ Rx] Pantoprazole [Protonix] 40 mg PO BID 30 Days #60 tablet. 07/06/18 [Rx] Follow up Appointment(s)/Referral(s): Prabha William DO [Primary Care Provider] - 1-2 days Triston Vasquez MD [STAFF PHYSICIAN] - 1 Week Activity/Diet/Wound Care/Special Instructions: no NSAIDS follow up with Dr. Vasquez in one week and again in 6-8 weeks for follow up EGD Discharge Disposition: HOME SELF-CARE
[2018-07-06] MEDS ORDERED: LEVOTHYROXINE 88 MCG TAB PO SCH (21:00)
[2018-07-06] MEDS ORDERED: LEVOTHYROXINE 100 MCG TAB PO SCH (21:00)
[2018-07-07] MEDS ORDERED: PANTOPRAZOLE 40 MG TABLET PO SCH (09:00)
== END 2018-07-06 17:13 | disposition home or self-care (01) | DRG 378 ==
LOC: EC 20:48 → SUPCPDRO 20:48 → 2SICU 22:19
PROVIDERS: ADMIT Internal Medicine; ATTEND Internal Medicine
PROC: 30233N1 Transfusion of Nonautologous Red Blood Cells into Peripheral Vein, Percutaneous Approach (ICD-10-PCS; 2018-07-05)
PROC: 0W3P8ZZ Control Bleeding in Gastrointestinal Tract, Via Natural or Artificial Opening Endoscopic (ICD-10-PCS; principal; 2018-07-05 07:30)
DX: K25.4 Chronic or unspecified gastric ulcer with hemorrhage (principal); D62 Acute posthemorrhagic anemia; K22.10 Ulcer of esophagus without bleeding; E03.9 Hypothyroidism, unspecified; Z71.6 Tobacco abuse counseling; F17.210 Nicotine dependence, cigarettes, uncomplicated; K44.9 Diaphragmatic hernia without obstruction or gangrene; Z82.49 Family history of ischemic heart disease and other diseases of the circulatory system; F10.11 Alcohol abuse, in remission; Z79.1 Long term (current) use of non-steroidal anti-inflammatories (NSAID); Z79.890 Hormone replacement therapy; Z79.899 Other long term (current) drug therapy; R50.9 Fever, unspecified
CPT/HCPCS: 36415; 43255; 71045; 80048; 80053; 81003; 81025; 82550; 82553; 83605; 83690; 83735; 84100; 84439; 84443; 84484; 85025; 85027; 85610; 85730; 86850; 86900; 86901; 86920; 96361; 96374; 96375; 99291

== ENCOUNTER 2018-09-23 10:24 | Day surgery (SDC) | payer OTHER ==
[2018-09-23] MEDS ORDERED: LIDOCAINE 1% 20 ML VIAL (10MG/ML) FOR IV START INTRADERMA PRN (10:38)
[2018-09-23] MEDS ORDERED: LACTATED RINGERS 1,000 ML IV SCH (10:38)
[2018-09-23 10:44] VITALS: TEMP 96.9
[2018-09-23] MEDS ORDERED: PROPOFOL 10 MG/ML 20 ML VIAL IV ONE (10:53)
--- NOTE | 2018-09-23 11:19 | P.PCN ---
Date of Procedure: 09/23/18 Description of Procedure: BRIEF HISTORY: The patient is a 43-year-old pleasant female who was initially seen in the hospital with complaints of hematemesis. At that time the patient was taking Motrin 800 mg 1-2 times per day and was not on any GI prophylaxis with PPI or H2 clif therapy, but was taking Rolaids approximately 2 times per day. She was taken for upper endoscopy at which time a large cratered antral ulcer was found and clip was placed for hemostasis, a small hiatal hernia and distal esophageal ulcer were also noted. Since that time the patient has been on PPI therapy, initially with Protonix twice daily and currently on omeprazole 40 mg daily. Currently abdominal pain is improved no reflux, dysphagia or odynophagia. PROCEDURE PERFORMED: Esophagogastroduodenoscopy. Room in time 10:53 AM, start time 1059AM. PREOPERATIVE DIAGNOSIS: History of antral ulcer, GERD. ESTIMATED BLOOD LOSS: Minimal. IV sedation per anesthesia. PROCEDURE: After informed consent was obtained, the patient was brought into the endoscopy unit. IV sedation was administered by Anesthesia under continuous monitoring. Initially the Olympus GIF-190 video endoscope was inserted into the mouth. Esophagus intubated without any difficulty. It was gradually advanced into the stomach and duodenum and carefully examined. The bulb and the second part of the duodenum appeared normal. The scope at this time was withdrawn to the stomach, adequately insufflated with air, and upon careful examination, mucosa of the antrum, body, cardia and the fundus appeared normal, except for some mild diffuse erythema of the antrum and body, with biopsies taken of the antrum and the area of previous ulcer and in the body. The scope was then withdrawn into the esophagus. A small hiatal hernia was noted. The GE junction was located at 37 cm from the incisors. The esophagus appeared normal. There were no erosions or ulcerations seen, with prior distal esophageal ulcer well-healed. The patient tolerated the procedure well. IMPRESSION: 1. Well-healed ulcer of the antrum, which was previously noted during episode of hematemesis when the patient was taken for endoscopy. 2. Mild gastritis of the antrum and body, with biopsies taken. 3. Small hiatal hernia. RECOMMENDATIONS: The findings of this examination were discussed with the patient and her sister. Continue omeprazole 40 mg daily. Await pathology from biopsies. Continue to avoid NSAID use.
[2018-09-23 11:34] VITALS: BP 111/72; PULSE 70; RESP 18
== END 2018-09-23 11:43 | disposition home or self-care (01) ==
LOC: ORWHC2ENDO 10:24
PROVIDERS: ATTEND Internal Medicine
DX: K29.50 Unspecified chronic gastritis without bleeding (principal); K21.9 Gastro-esophageal reflux disease without esophagitis; K44.9 Diaphragmatic hernia without obstruction or gangrene; E07.9 Disorder of thyroid, unspecified; Z87.891 Personal history of nicotine dependence; Z79.890 Hormone replacement therapy; Z79.899 Other long term (current) drug therapy; Z79.51 Long term (current) use of inhaled steroids; Z82.49 Family history of ischemic heart disease and other diseases of the circulatory system
CPT/HCPCS: 81025; 88305; 43239; J2704

== ENCOUNTER → 2020-12-07 | Outpatient (CLI) | payer OTHER ==
--- NOTE | 2020-12-07 17:09 | XR ---
Right elbow HISTORY: Contusion 3 weeks prior, pain 3 views the right elbow Bone mineralization, joint spaces and alignment are maintained. No evident joint effusion. IMPRESSION: No fracture or dislocation. Elbow MRI could be performed for increased sensitivity.
== END | disposition home or self-care (01) ==
LOC: RADXRMAIN 15:21
PROVIDERS: ATTEND Physician Assistant Medical
DX: S50.01XA Contusion of right elbow, initial encounter (principal)

== ENCOUNTER → 2021-05-21 | Outpatient (CLI) | payer OTHER ==
--- NOTE | 2021-05-21 20:27 | CONS ---
CONSULTATION REASON FOR CONSULTATION: Sleep apnea. Chel is a 46-year-old female patient who has been excessively sleepy. The patient feels fatigued and sleepy all the time. Her current [place]endale score is 20. She works locally at a [employer]. She feels exhausted. Nevertheless, she is able to function at work. She is not falling asleep while driving her car. This has been going on for the past 1 to 2 years and her symptoms have gradually gotten worse. No sleep paralysis. No hallucinations. No cataplexy. She has TMJ and she has been utilizing gabapentin. She also has shoulder spasms, for which she is taking Flexeril. No head trauma. No PTSD. No depression. She has a history of snoring and she quits breathing at night per family members. She goes to bed around midnight and wakes up 6:30 a.m. in the morning and she carries the same schedule over the weekends. No sleep paralysis. No hallucinations. No cataplexy. No seizure activity. She sleeps on her side. Overall, she has gained around 10 pounds over the past one year. No family history of sleep apnea. PAST MEDICAL HISTORY: TMJ, muscle spasms, diabetes, hypertension, hypothyroidism, hyperlipidemia and history of peptic ulcer disease. PAST SURGICAL HISTORY: Past surgical history includes EGD with cauterization of peptic ulcer and tubal ligation. DRUG ALLERGIES: NOT KNOWN. OUTPATIENT MEDICATION: Outpatient medication includes: 1. Gabapentin 300 mg p.o. t.i.d. 2. Flexeril 5 mg once a day. 3. Metformin 500 mg p.o. daily. 4. Levothyroxine 175 mcg p.o. daily. 5. Lisinopril 25 mg p.o. daily. 6. [place] Thyroid 30 p.o. daily. 7. Loratadine 10 mg p.o. daily. 8. Omeprazole 40 mg p.o. daily. 9. Lipitor 20 mg p.o. daily. 10.Carafate on an as-needed basis. SOCIAL HISTORY: The patient is a smoker; 30 pack-year smoking history and she smokes marijuana occasionally. No history of alcoholism. No history of substance abuse other than marijuana. FAMILY HISTORY: Negative for sleep apnea. Family history is positive for hypertension and heart problems. REVIEW OF SYSTEMS: Fourteen-point review of systems was done. Positive findings are all mentioned above in the history of present illness. PHYSICAL EXAMINATION: BP is 153/100, pulse 91, respirations 16, temperature 97.3, saturation 97% on room air. GENERAL APPEARANCE: Calm, comfortable. No acute distress. HEAD: Atraumatic, normocephalic. Neck is supple. There is no JVD. There is no goiter or neck masses. Mallampati class IV. She has micrognathia. LUNGS: Clear to auscultation. Heart sounds are regular rate and rhythm. Normal S1, S2. No S3, S4. No murmurs. ABDOMEN: Soft, nontender. No organomegaly. EXTREMITIES: No edema. No cyanosis or clubbing. NEUROLOGIC: Awake and alert. There is no focal neurological deficit. IMPRESSION: 1. Chronic hypersomnia, Allendale score of 20. High likelihood for obstructive sleep apnea that needs to be further investigated. The patient will be given a polysomnogram. No other obvious secondary causes to explain her hypersomnia. 2. TMJ. 3. Shoulder spasms. 4. Diabetes mellitus. 5. Hypertension. 6. Hypothyroidism. 7. Hyperlipidemia. 8. History of peptic ulcer disease. 9. History of smoking. PLAN: 1. Proceed with a screening polysomnogram. 2. Optimize sleep hygiene measures. 3. Extend sleep hours to an average of 7 to 8 hours of sleep per night and take naps during the day if possible. 4. Will continue following up with this patient. Will proceed with polysomnography. I will make further recommendations based on results of the sleep study. MMODL / IJN: [id number] /
== END ==
LOC: SLEEP 16:01
PROVIDERS: ATTEND Internal Medicine Critical Care Medicine
DX: G47.10 Hypersomnia, unspecified (principal); I10 Essential (primary) hypertension; E03.9 Hypothyroidism, unspecified; E11.9 Type 2 diabetes mellitus without complications; E78.5 Hyperlipidemia, unspecified; M26.609 Unspecified temporomandibular joint disorder, unspecified side; F17.210 Nicotine dependence, cigarettes, uncomplicated; R25.2 Cramp and spasm; Z87.11 Personal history of peptic ulcer disease; Z79.84 Long term (current) use of oral hypoglycemic drugs; Z79.899 Other long term (current) drug therapy
CPT/HCPCS: 99211

== ENCOUNTER → 2023-05-26 | Outpatient (CLI) | payer OTHER ==
--- NOTE | 2023-05-26 17:04 | P.PN ---
Progress Note - Text Progress Note Date: 05/26/23 On today's evaluation of 05/26/2023, the patient remains symptomatic. She continues to have loud snoring, fragmented sleep, excessive hypersomnia and sleepiness during the day. I started this patient for obstructive sleep apnea back in 2021. At that time, the patient was found to have positional obstructive sleep apnea. There are based on a chair was 8.9. Her disease was significantly worse in the supine body position. Based on that, I recommended CPAP therapy. The patient failed to obtain her machine back to [facility] is coming in as the patient has become much more symptomatic compared to last year. Her weight remains stable at 169. Nevertheless, she is having difficulties with functionality and tiredness and sleepiness during the day. She continues to snore very loud. She wanted to proceed with CPAP therapy and she is committed to treatment. Her medications include loratadine 10 mg by mouth daily, levothyroxin 80 g by mouth daily, omeprazole 20 mg by mouth daily, flexible, milligrams 3 times a day, Lipitor, metformin, vitamin D, gabapentin and Carafate. BP is 130/85 with a pulse of 92 and the respiration of 18 with a temperature 98.4. Weight is 169. Hyde score is at 19. The patient appeared well nourished and normally developed. Vital signs as documented. Head exam is unremarkable. No scleral icterus or corneal arcus noted. Neck is without jugular venous distension, thyromegaly, or carotid bruits. Carotid upstrokes are brisk bilaterally. Lungs are clear to auscultation and percussion. Cardiac exam reveals the PMI to be normally sized and situated. Rhythm is regular. First and second heart sounds normal. No murmurs, rubs or gallops. Abdominal exam reveals normal bowel sounds, no masses, no organomegaly and no aortic enlargement. Extremities are nonedematous and both femoral and pedal pulses are normal.Examination of the skin revealed no evidence of significant rashes, suspicious appearing nevi or other concerning lesions.Neurologically, the patient is awake and alert and the patient does not have any focal neurological deficit. Cranial nerves are essentially intact. Assessment Positional obstructive sleep apnea, symptomatic. Based on AHI is at the point on yet the patient has severe disease in the supine body position and incentive time she has excessive sleep fragmentation and arousals related to obstructive sleep apnea. Chronic hypersomnia with an Hyde score of 19 TMJ History of muscle spasms Hypertension Hypothyroidism Hyperlipidemia Peptic ulcer disease Plan I do not see the need to restudy the patient. Based on an earlier sleep study, the patient qualified for CPAP therapy. I'm going to give the patient an APAP machine pressures of 5/15 cm of water and the patient was provided an air fit f20 fullface mask. We'll continue the same medication. The patient will see him back in the office in 3-90 days after obtaining her CPAP machine for a compliancy check. Anticipate improvement in her symptoms while being on CPAP. No other issues for now. We'll proceed with treatment. If the machine is declined based on insurance protocol, will order a home sleep study to establish diagnosis and proceed with treatment.
== END ==
LOC: 3 N SLEEP 13:59
PROVIDERS: ATTEND Internal Medicine Critical Care Medicine
DX: G47.10 Hypersomnia, unspecified (principal); E78.5 Hyperlipidemia, unspecified; E03.9 Hypothyroidism, unspecified; I10 Essential (primary) hypertension; M26.609 Unspecified temporomandibular joint disorder, unspecified side; M62.838 Other muscle spasm; F17.200 Nicotine dependence, unspecified, uncomplicated; K27.9 Peptic ulcer, site unspecified, unspecified as acute or chronic, without hemorrhage or perforation; Z79.890 Hormone replacement therapy; Z79.899 Other long term (current) drug therapy
CPT/HCPCS: 99212

== ENCOUNTER → 2023-09-18 | Outpatient (CLI) | payer OTHER ==
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
== END | disposition home or self-care (01) ==
LOC: RADMRIMAIN 19:09
PROVIDERS: ATTEND Family Medicine
DX: H53.9 Unspecified visual disturbance (principal); R51.9 Headache, unspecified
CPT/HCPCS: 70553; A9585

== ENCOUNTER 2023-09-24 22:57 | Emergency (ER) | payer OTHER ==
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
[2023-09-25] MEDS: BACITRACIN ZINC 500 UNIT/GM OINT 28.4 GM TUBE TOPICAL ONE (02:37)
[2023-09-25 02:52] VITALS: BP 148/82; PULSE 88; RESP 16; TEMP 98.2
[2023-09-25] MEDS: MORPHINE SULFATE 4 MG/ML SYRINGE IM STA (03:12)
[2023-09-25] MEDS: DIPH,PERTUS(ACELL)TETVAC-LF 0.5 ML VIAL IM ONE (03:13)
== END 2023-09-25 03:16 | disposition home or self-care (01) ==
LOC: EC 22:57
DX: T22.212A Burn of second degree of left forearm, initial encounter (principal); I10 Essential (primary) hypertension; E07.9 Disorder of thyroid, unspecified; F17.200 Nicotine dependence, unspecified, uncomplicated; F12.90 Cannabis use, unspecified, uncomplicated; Z79.890 Hormone replacement therapy; Z23 Encounter for immunization; Z79.899 Other long term (current) drug therapy; X12.XXXA Contact with other hot fluids, initial encounter
CPT/HCPCS: 99283; 96372; 90471; 90715; J2270